=== PATIENT | male | born 1940 | race Caucasian/White ===

== ENCOUNTER → 2017-06-17 | Outpatient (CLI) | payer OTHER, MEDICARE ==
[~2017-06-17] MED LIST: REGADENOSON 0.4 MG/5 ML SYR IVP ONE
--- NOTE | 2017-06-18 01:39 | CPR ---
[f rep st] NONINVASIVE CARDIAC PROCEDURE REPORT DATE OF PROCEDURE: 06/17/2017 PROCEDURE: Lexiscan nuclear stress test. INDICATION: The patient is has a history of coronary artery disease. He presented to our office for cardiac clearance. He is unable to exercise, and therefore a stress test was ordered. DESCRIPTION OF PROCEDURE: Consent was obtained, and the patient was placed on continuous telemetry. His resting EKG revealed normal sinus rhythm with 1 PVC. He had T wave flattening in the inferior l rodolfo. The patient was infused with Lexiscan and complained of mild flushing. He remained in normal sinus rhythm with rare PVCs. There were no significant ST-T wave changes. His blood pressure at res t was 160/80 and remained at 160/80 throughout the study. PLAN: Await nuclear images. /[id number]/MODL
== END ==
LOC: FIMAGING 12:41
PROVIDERS: ATTEND Nurse Practitioner Adult Health
PROC: C22G1ZZ Tomographic (Tomo) Nuclear Medicine Imaging of Myocardium using Technetium 99m (Tc-99m) (ICD-10-PCS; principal; 2017-06-17)
DX: Z01.810 Encounter for preprocedural cardiovascular examination (principal); I25.10 Atherosclerotic heart disease of native coronary artery without angina pectoris
CPT/HCPCS: 78452; 93017; A9500; J2785

== ENCOUNTER 2017-09-07 13:37 | Emergency (ER) | payer OTHER, MEDICARE ==
--- NOTE | 2017-09-07 13:53 | CPEKG ---
Heart Rate: 82 RR Interval: 732 P-R Interval: 148 QRSD Interval: 88 QT Interval: 396 QTC Interval: 463 P [place]: -9 QRS [place]: -29 T Wave [place]: 10 EKG Severity - OTHERWISE NORMAL ECG - EKG Impression: SINUS RHYTHM EKG Impression: BORDERLINE LEFT AXIS DEVIATION Electronically Signed By: Shukri Schroeder 07-Sep-2017 14:02:53
[2017-09-07] MEDS ORDERED: NS 1,000 ML IV ONE (13:55)
--- NOTE | 2017-09-07 13:59 | EDPHY ---
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 The patient reports when his headache began it was severe, it was right retro-orbital and radiated to his occiput neck. He has no prior history of headaches. He states that since his headache developed he has had improvement of his symptoms however his headache is never entirely resolved. He currently rates his headache as a 1/10. The patient denies any acute numbness or weakness. The patient does have a history of a recent right hip replacement in June. He denies any fever, cough or congestion. He denies any history of fall or trauma. The patient does have a history of coronary artery disease status post stent x5. He is not anticoagulated. He does not have a pacemaker. REVIEW OF SYSTEMS: A comprehensive 10 point review of systems is otherwise negative aside from elements mentioned in the history of present illness. Source: Patient Exam Limitations: No limitations - Personal History Current Tetanus/Diphtheria Vaccine: Unsure - Medical/Surgical History Hx Asthma: No Hx Chronic Respiratory Disease: No Hx Diabetes: No Hx Cardiac Disease: Yes Hx Renal Disease: No Hx Cirrhosis: No Hx Alcoholism: No Hx HIV/AIDS: No Hx Splenectomy or Spleen Trauma: No Other PMH: 5 STENTS/TONSILS OUT AGE 19. HTN - Social History Smoking Status: Former smoker - Physical Exam Exam: General Appearance: Alert, no distress Eyes: Pupils equal and round no pallor or injection ENT, Mouth: Mucous membranes moist Respiratory: There are no retractions, lungs are clear to auscultation Cardiovascular: Regular rate and rhythm Gastrointestinal: Abdomen is soft and nontender, no masses, bowel sounds normal Neurological: 5/5 strength all 4 extremities, alert and oriented x4, cranial nerves 2-12 intact, sensation intact to light touch throughout. NIH stroke scale is 0 Skin: Warm and dry, no rashes Musculoskeletal: Neck is supple nontender Extremities: symmetrical, full range of motion Constitutional: Initial Vital Signs Temperature (C) 36.4 C 09/07/17 13:41 Heart Rate 79 09/07/17 13:41 Respiratory Rate 18 09/07/17 13:41 Blood Pressure 152/76 H 09/07/17 13:41 O2 Sat (%) 90 L 09/07/17 13:41 O2 Delivery Mode Room Air Allergies/Adverse Reactions: Yovijbi-Rng-Qez Reductase Inhibitor Allergy (Intermediate, Verified 09/07/17 13: 40) muscle weakness Home Medications: Medication Instructions Recorded Aspirin [Aspirin 81mg (OTC)] 81 mg PO DAILY 11/23/12 Diazepam [Valium 5 MG (*)] 5 mg PO Q6-8PRN PRN #15 tab 11/13/13 Lisinopril 11/13/13 Medical Decision Making - Diagnostics EKG Interpretation: EKG: Complete interpretation has been separately recorded in the [facility] archive. Summary impression: Sinus rhythm, rate 82 Imaging Results: Imaging Impressions Head CT 09/07/17 14:05 Impression: 1. Mild to moderate age-related atrophy. 2. No hemorrhage, mass effect, or definite acute peripheral infarct. 3. Mild to moderate nonspecific hypodensities in the white matter of bilateral cerebral hemispheres. Differential diagnosis includes microvascular ischemic disease, post-infectious/post-inflammatory sequela, atypical demyelinating disease, or migraine-related sequela. Small white matter lacunar infarcts may also have this appearance. Findings discussed with Shukri Schroeder M.D. at 15:15 hour, 09/07/2017. CT angiogram head and neck: Images reviewed by myself and discussed with the on -call radiologist Dr. Gary Chin. No evidence of dissection, stenosis or significant flow-limiting disease. ED Course/Re-evaluation: The patient is referred to the ED from the cardiology clinic for evaluation of a 5 day history of a retro-orbital headache. The patient reports his headache is currently 1/10. The patient denies any fever. He is noted to be neurologically intact in the emergency department. Cardiology reportedly raise the question of a possible facial droop which I do not appreciate. The patient was noted to be hemodynamically stable. He was taken for a CT scan of the brain which demonstrates no evidence of intracranial hemorrhage. He had a CT angiogram of the head neck which also demonstrates no evidence of dissection or vertebral basilar insufficiency. The patient's laboratory studies are unremarkable. The patient has no evidence of any abnormal cerebellar findings on his physical exam. He has been having some intermittent symptoms of positional vertigo. At this point time I do feel the patient can be discharged home with precautions. He is advised to use Tylenol and ibuprofen as needed for management of his headache. He is advised to return to the ED for any acute neurologic symptoms or other concerns. Differential Diagnosis: Differential diagnosis considered includes intracranial hemorrhage, carotid dissection, migraine headache, stroke, TIA - Data Points Laboratory Results: Laboratory Results 09/07/17 13:54 09/07/17 13:54 09/07/17 09/07/17 09/07/17 13:59 13:54 13:54 WBC RBC Hgb POC Hgb 17.3 gm/dL gm/dL (13.7-17.5) Hct POC Hct 51 % % (40-51) MCV MCH MCHC RDW Plt Count MPV Neut % (Auto) Lymph % (Auto) [place] % (Auto) Eos % (Auto) Baso % (Auto) Nucleat RBC Rel Count Absolute Neuts (auto) Absolute Lymphs (auto) Absolute Monos (auto) Absolute Eos (auto) Absolute Basos (auto) Absolute Nucleated RBC Immature Gran % Immature Gran # PT 13.5 SEC SEC (12.0-15.0) INR 1.01 (0.83-1.16) APTT 25.9 SEC SEC (23.0-38.0) POC Sodium 143 mEq/L mEq/L (135-145) Sodium 143 mEq/L mEq/L (135-145) POC Potassium 4.0 mEq/L mEq/L (3.3-5.0) Potassium 4.3 mEq/L mEq/L (3.5-5.2) POC Chloride 106 mEq/L mEq/L (97-110) Chloride 106 mEq/L mEq/L (97-110) Carbon Dioxide 25 mEq/l mEq/l (22-31) Anion Gap 12 mEq/L mEq/L (8-16) POC BUN 24 mg/dL H mg/dL (7-23) BUN 23 mg/dL mg/dL (7-23) Creatinine 0.9 mg/dL mg/dL (0.7-1.3) POC Creatinine 0.9 mg/dL mg/dL (0.7-1.3) Estimated GFR > 60 Glucose 147 mg/dL H mg/dL (70-100) POC Glucose 157 mg/dL H mg/dL (70-100) Calcium 9.9 mg/dL mg/dL (8.5-10.4) 09/07/17 13:54 WBC 7.72 10^3/uL 10^3/uL (3.80-9.50) RBC 5.86 10^6/uL 10^6/uL (4.40-6.38) Hgb 16.7 g/dL g/dL (13.7-17.5) POC Hgb Hct 50.2 % % (40.0-51.0) POC Hct MCV 85.7 fL fL (81.5-99.8) MCH 28.5 pg pg (27.9-34.1) MCHC 33.3 g/dL g/dL (32.4-36.7) RDW 13.2 % % (11.5-15.2) Plt Count 249 10^3/uL 10^3/uL (150-400) MPV 8.6 fL L fL (8.7-11.7) Neut % (Auto) 60.8 % % (39.3-74.2) Lymph % (Auto) 27.8 % % (15.0-45.0) [place] % (Auto) 9.2 % % (4.5-13.0) Eos % (Auto) 1.2 % % (0.6-7.6) Baso % (Auto) 0.6 % % (0.3-1.7) Nucleat RBC Rel Count 0.0 % % (0.0-0.2) Absolute Neuts (auto) 4.69 10^3/uL 10^3/uL (1.70-6.50) Absolute Lymphs (auto) 2.15 10^3/uL 10^3/uL (1.00-3.00) Absolute Monos (auto) 0.71 10^3/uL 10^3/uL (0.30-0.80) Absolute Eos (auto) 0.09 10^3/uL 10^3/uL (0.03-0.40) Absolute Basos (auto) 0.05 10^3/uL 10^3/uL (0.02-0.10) Absolute Nucleated RBC 0.00 10^3/uL 10^3/uL (0-0.01) Immature Gran % 0.4 % % (0.0-1.1) Immature Gran # 0.03 10^3/uL 10^3/uL (0.00-0.10) PT INR APTT POC Sodium Sodium POC Potassium Potassium POC Chloride Chloride Carbon Dioxide Anion Gap POC BUN BUN Creatinine POC Creatinine Estimated GFR Glucose POC Glucose Calcium Medications Given: Discontinued Medications Sodium Chloride (Ns) 1,000 mls @ 0 mls/hr IV EDNOW ONE; Wide Open PRN Reason: Protocol Stop: 09/07/17 13:56 Last Admin: 09/07/17 14:10 Dose: 1,000 mls Point of Care Test Results: 09/07/17 13:59 POC Sodium 143 POC Potassium 4.0 POC Chloride 106 POC BUN 24 H POC Creatinine 0.9 POC Glucose 157 H Departure - Departure Disposition: Home, Routine, Self-Care Clinical Impression: Headache Condition: Good Instructions: Acute Headache (ED) Additional Instructions: 1. Tylenol and ibuprofen as needed for headache. 2. Return to the ED for any numbness, weakness, worsening headache, fever, chest pain, difficulty breathing or other concerns. 3. Please schedule a follow-up appointment with your primary care provider for a recheck. Referrals: Andrew Velazquez MD [Primary Care Provider] - As per Instructions
[2017-09-07 14:07] LABS: PLATELET COUNT 249 10^3/uL (150-400)
[2017-09-07] MEDS ORDERED: IOPAMIDOL (ISOVUE 370) 100 ML BTL IV ONE (14:15)
[2017-09-07 14:16] LABS: INR 1.01 (0.83-1.16); PROTIME(PATIENT) 13.5 SEC (12.0-15.0)
[2017-09-07 15:18] VITALS: BP 165/92
== END 2017-09-07 15:46 | disposition home or self-care (01) ==
DX: R51 Headache (principal); E86.9 Volume depletion, unspecified; I10 Essential (primary) hypertension; Z79.82 Long term (current) use of aspirin; Z87.891 Personal history of nicotine dependence
CPT/HCPCS: 70450; 70496; 70498; 93005; 96360; 99285; Q9967; 82947-QW